=== PATIENT | female | born 1960 | race Caucasian/White ===

== ENCOUNTER 2016-11-27 10:30 | Outpatient (CLI) | payer BC ==
--- NOTE | 2016-11-27 10:54 | RAD ---
RIGHT ANKLE 3 VIEWS: HISTORY: Right ankle pain. FINDINGS: There is a fracture involving the inferior aspect of the lateral malleolus without significant displ acement. The ankle mortise is maintained. Soft tissue swelling is present. There is a plantar eugene caneal spur. IMPRESSION: Right lateral malleolar fracture. POS: [facility]
== END 2016-11-27 10:31 | disposition home or self-care (01) ==
LOC: RAD-FRANK 10:30
PROVIDERS: ATTEND Nurse Practitioner Family
DX: M25.571 Pain in right ankle and joints of right foot (principal); S82.61XA Displaced fracture of lateral malleolus of right fibula, initial encounter for closed fracture